=== PATIENT | female | born 1955 ===

== ENCOUNTER 2024-05-17 05:20 | Day surgery (SDC) | payer OTHER ==
[2024-05-08 12:09] LABS: HEMATOCRIT 40.8 % (36.0-45.00); MEAN CORPUSCULAR HEMOGLOBIN 30.1 pg (27.00-32.0); MEAN CORPUSCULAR HGB CONC 34.3 g/dl (32.0-36.0); PLATELET COUNT 294 K/uL (150-450); RED BLOOD COUNT 4.63 M/uL (4.00-6.00); RED CELL DISTRIBUTION WIDTH 13.9 % (11.5-14.5)
[2024-05-08 12:10] LABS: URINE APPEARANCE Cloudy; URINE BILIRRUBIN Negative (NEGATIVE); URINE COLOR Yellow; URINE GLUCOSE Negative (NEGATIVE); URINE KETONE Negative (NEGATIVE); URINE LEUKOCYTE Trace; URINE NITRATE Negative; URINE PROTEIN Trace (NEGATIVE); URINE UROBILINOGEN 0.2 E.U./dl
[2024-05-08 12:15] LABS: URINE BACTERIA 1175.4 uL (0.0-1933); URINE RBC 60.4 uL (0.0-20.8); URINE WBC 18.3 uL (0.0-23.2)
[2024-05-08 12:16] LABS: URINE BLOOD TRACES
[2024-05-08 12:30] LABS: PARTIAL THROMBOPLASTIN TIME 25.1 SECONDS (22.0-34.0); PROTHROMBIN TIME 10.9 SECONDS (9.0-11.5)
[2024-05-08 12:51] LABS: CALCIUM 10.1 mg/dL (8.5-10.1); CREATININE SERUM 0.79 mg/dL (0.55-1.02); GFR 72.16; POTASSIUM 4.85 mEq/L (3.5-5.1)
[~2024-05-17 05:20] MED LIST: BISOPROLOL FUMA10 MG; CLONAZEPAM0.5 MG; EFFEXOR XR150 MG
[2024-05-17] MEDS ORDERED: ISOPROPYL ALCOHOL 30 ML OUNCE TOP ONE (08:30)
[2024-05-17] MEDS ORDERED: CEFOXITIN SODIUM 2,000 MG VIAL IV ONE (08:30)
[2024-05-17] MEDS ORDERED: BUPIVACAINE HCL 30 ML VIAL IJ ONE (08:30)
[2024-05-17] MEDS ORDERED: LIDOCAINE HCL 1%/EPINEPHRINE 20ML VIAL IJ ONE (08:30)
[2024-05-17] MEDS ORDERED: EPINEPHRINE HCL/PF 1 MG/ML AMPUL IR ONE (08:30)
[2024-05-17] MEDS ORDERED: METHYLPREDNISOLONE ACETATE 80 MG/ML VIAL IJ ONE (08:30)
[2024-05-17] MEDS ORDERED: DUI500 PO (08:54)
[2024-05-17] MEDS ORDERED: TRAM1TAB98 PO (08:55)
[2024-05-17] MEDS ORDERED: CEFAZOLIN SODIUM 1,000 MG VIAL IV ONE (09:00)
[2024-05-17] MEDS ORDERED: CEFADROXIL 500 MG CAPSULE PO SCH (09:00)
[2024-05-17] MEDS ORDERED: PROMETHAZINE HCL 25 MG/ML AMPUL IM PRN (09:00)
[2024-05-17] MEDS ORDERED: MEPERIDINE HCL/PF 25 MG/ML VIAL IM PRN (09:00)
== END 2024-05-17 14:00 | disposition home or self-care (01) ==
LOC: CIR.AMB 05:20
PROVIDERS: ATTEND Orthopaedic Surgery Sports Medicine
DX: S83.231A Complex tear of medial meniscus, current injury, right knee, initial encounter (principal); M22.41 Chondromalacia patellae, right knee; M23.51 Chronic instability of knee, right knee; M67.51 Plica syndrome, right knee